=== PATIENT | female | born 1970 | race Caucasian/White ===

== ENCOUNTER 2018-03-13 05:42 | Day surgery (SDC) | payer OTHER ==
[2018-03-13] MEDS ORDERED: MIDAZOLAM 1 MG/ML 2 ML INJ ×2 (07:58)
[2018-03-13] MEDS ORDERED: FENTAnyl 50 MCG/ML VIAL (07:59)
== END 2018-03-13 11:52 | disposition home or self-care (01) ==
LOC: GIL 05:42
DX: K44.9 Diaphragmatic hernia without obstruction or gangrene (principal); K21.0 Gastro-esophageal reflux disease with esophagitis; K29.60 Other gastritis without bleeding
CPT/HCPCS: 43239; 84703; 87081

== ENCOUNTER 2018-10-01 08:35 | Day surgery (SDC) | payer OTHER ==
[2018-10-01 09:33] LABS: ADD MAN DIFF? NO
[2018-10-01 09:39] LABS: BASOPHILS % 0.5 % (0.0-2.0); EOSINOPHILS # 0.3 10^3/ul (0.0-0.5); EOSINOPHILS % 3.1 % (0.0-7.0); HEMATOCRIT 31.3 % (37.0-47.0); HEMOGLOBIN 10.3 g/dl (12.0-16.0); LYMPHOCYTES # 1.7 10^3/ul (0.8-2.9); MEAN CORPUSCULAR HEMOGLOBIN 30.4 pg (29.0-33.0); MEAN CORPUSCULAR HGB CONC 32.9 g/dl (32.0-37.0); MEAN CORPUSCULAR VOLUME 92.3 fl (82.0-101.0); MEAN PLATELET VOLUME 10.5 fl (7.4-10.4); MONOCYTE # 0.5 10^3/ul (0.3-0.9); MONOCYTES % 5.4 % (0.0-11.0); NEUTROPHIL # 6.2 10^3/ul (1.6-7.5); NEUTROPHILS % 71.5 % (39.0-77.0); PLATELET COUNT 280 10^3/UL (140-415); RED BLOOD COUNT 3.39 10^6/ul (4.20-5.40); RED CELL DISTRIBUTION WIDTH 12.9 % (11.5-14.5)
[2018-10-01 09:39] LABS: WHITE BLOOD COUNT 8.7 10^3/ul (4.8-10.8)
[2018-10-01 09:59] LABS: ALANINE AMINOTRANSFERASE 19 IU/L (13-69); ALKALINE PHOSPHATASE 52 IU/L (42-121); ANION GAP 11 (5-13); ASPARTATE AMINO TRANSFERASE 17 IU/L (15-46); BILIRUBIN,INDIRECT 0.3 mg/dl (0-1.1); BILIRUBIN,TOTAL 0.3 mg/dl (0.2-1.3); BLOOD UREA NITROGEN 13 mg/dl (7-20); CALCIUM 8.8 mg/dl (8.4-10.2); CARBON DIOXIDE 24 mmol/L (21-31); CHLORIDE 106 mmol/L (97-110); CREATININE 0.56 mg/dl (0.44-1.00); Estimated GFR > 60 mL/min (>60); GLUCOSE 115 mg/dl (70-220); POTASSIUM 3.8 mmol/L (3.5-5.1); SODIUM 141 mmol/L (135-144); TOTAL PROTEIN 6.5 g/dl (6.1-8.1)
[2018-10-01] MEDS ORDERED: LACTATED RINGER'S 1,000 ML IV (10:00)
[2018-10-01] MEDS ORDERED: GLYCOPYRROLATE 0.4 MG INJ (10:28)
[2018-10-01] MEDS ORDERED: PROPOFOL 20 ML (10:28)
[2018-10-01] MEDS ORDERED: LIDOCAINE 2% (SDV) 5 ML INJ (10:28)
[2018-10-01] MEDS ORDERED: ROCURONIUM 50 MG INJ (10:28)
[2018-10-01] MEDS ORDERED: NEOSTIGMINE 3 MG/3 ML SYRINGE (10:28)
[2018-10-01] MEDS ORDERED: MIDAZOLAM 1 MG/ML 2 ML INJ (10:28)
[2018-10-01] MEDS ORDERED: FENTAnyl 50 MCG/ML VIAL (10:28)
[2018-10-01] MEDS ORDERED: DEXAMETHASONE 4 MG/ML 1 ML INJ (10:28)
[2018-10-01] MEDS ORDERED: ONDANSETRON 4 MG INJ ×2 (10:29→11:48)
[2018-10-01] MEDS ORDERED: SUCCINYLCHOLINE CHLORIDE 100 MG/5 ML SYG IV (10:32)
[2018-10-01] MEDS ORDERED: PROPOFOL 100 ML (10:44)
[2018-10-01] MEDS ORDERED: CEFAZOLIN 1 GM INJ (10:46)
[2018-10-01] MEDS ORDERED: SUGAMMADEX SODIUM 200 MG/2 ML VIAL IV (11:23)
[2018-10-01] MEDS ORDERED: MEPERIDINE 25 MG INJ (11:48)
[2018-10-01] MEDS: ONDANSETRON 4 MG INJ IV (12:15)
[2018-10-01] MEDS: MEPERIDINE 25 MG INJ IV (12:15)
== END 2018-10-01 13:05 | disposition home or self-care (01) ==
LOC: SDS 08:35
DX: N93.9 Abnormal uterine and vaginal bleeding, unspecified (principal)
CPT/HCPCS: 58558; 80053; 84703; 85025; 86850; 86900; 86901; 88305; 93005